=== PATIENT | female | born 1990 | race Caucasian/White ===

== ENCOUNTER 2024-12-08 05:08 | Emergency (ER) | payer MEDICAID, OTHER ==
[~2024-12-08] VITALS: Ht 167.6 cm; Wt 54.0 kg
[2024-12-08 05:10] VITALS: O2SAT 98
[2024-12-08 06:15] VITALS: BP 142/99; PULSE 115; RESP 18; TEMP 36.5; O2SAT 100
== END 2024-12-08 06:17 | disposition home or self-care (01) ==
LOC: ER 05:08
DX: F41.9 Anxiety disorder, unspecified (principal); Z79.899 Other long term (current) drug therapy
CPT/HCPCS: 99283